=== PATIENT | male | born 1960 | race Two or more races ===

== ENCOUNTER 2023-10-17 14:09 | Emergency (ER) | payer OTHER ==
[~2023-10-17] VITALS: Ht 167.6 cm; Wt 130.2 kg
[2023-10-17] MEDS ORDERED: HORIZANT300 MG (15:25)
[2023-10-17] MEDS ORDERED: IBU800 MG (15:25)
[2023-10-17] MEDS ORDERED: ZANAFLEX4 MG (15:26)
[2023-10-17] MEDS ORDERED: ACETAMINOPHEN WITH CODEINE 1 UDTAB TABLET PO ONE (17:15)
[2023-10-17 18:28] LABS: HEMATOCRIT 41.1 % (39.0-48.0); HEMOGLOBIN 13.7 g/dL (13-16.00); MEAN CELL VOLUME 85.9 fL (80.0-100.00); MEAN CORPUSCULAR HEMOGLOBIN 28.7 pg (27.00-32.0); MEAN CORPUSCULAR HGB CONC 33.4 g/dl (32.0-36.0); PLATELET COUNT 234 K/uL (150-450); RED BLOOD COUNT 4.78 M/uL (4.00-6.00); RED CELL DISTRIBUTION WIDTH 15.3 % (11.5-14.5)
[2023-10-17 18:52] LABS: ALBUMIN 2.9 gm/dL (3.4-5.0); CALCIUM 9.5 mg/dL (8.5-10.1); CREATININE SERUM 1.01 mg/dL (0.70-1.30); GFR 75.1; GLOBULINA 5.2 G/DL (2.4-3.5); POTASSIUM 4.08 mEq/L (3.5-5.1); TOTAL PROTEIN 8.1 gm/dL (6.4-8.2)
[2023-10-17] MEDS ORDERED: MEPERIDINE HCL/PF 50 MG/ML VIAL IV ONE (22:30)
== END 2023-10-17 23:53 | disposition home or self-care (01) ==
LOC: ER 14:09
PROVIDERS: Emergency Medicine
DX: M54.50 Low back pain, unspecified (principal); M62.830 Muscle spasm of back; Z88.0 Allergy status to penicillin; I10 Essential (primary) hypertension
CPT/HCPCS: 36415; 72131; 96365; 99284; J3490